=== PATIENT | female | born 1990 | race Caucasian/White ===

== ENCOUNTER 2016-07-08 22:40 | Emergency (ER) | payer OTHER ==
[~2016-07-08] VITALS: Ht 160 cm; Wt 63.1 kg
[~2016-07-08 22:40] MED LIST: 1-DAY4.6 GM VG; ADDERALL10 MG PO; ADDERALL5 MG PO; AMOXICILLI400 MG/5 M PO; AMOXICILLIN250 MG PO; AMOXICILLIN500 M1 PO; AMOXICILLIN875 MG PO; ANTIVERT25 MG PO; ANUSOL-HC21 GM PR; ATARAX,VISTARIL50 MG PO; AURALGAN14.8 ML RIGHT EAR; BACTRIM,SEPT1 TABLET PO; BACTRIM,SEPTRA S1 ML PO; BIOTIN1000 MICRO PO; CARAFATE100 MG/ML PO; CENTANY30 GM TP; CIPRO500 MG PO; CITRATE OF MAG296 ML PO; CLARITIN-D 21 TABLET PO; CLONAZEPAM0.5 MG PO; CLOTRIMAZOLE-745 GM VG; CLOTRIMAZOLE100 MG VG; COLACE100 MG PO; CYANOCOBAL1000 MCG/2 IM; DIFLUCAN150 MG PO; DOXYCYCLINE HY100 MG PO; FLAGYL500 MG PO; FLEXERIL10 MG PO; FLINTSTONES1 EACH PO; FLONASE16 G1 BOTH NARES; HYCODAN SYRUP480 ML PO; IBUPROFEN600 MG PO; IMITREX25 MG PO; K-DUR20 MEQ PO; KEFLEX500 MG PO; KLONOPIN0.5 M1 PO; KLONOPIN1 MG PO; MACROBID100 MG PO; MEDROL DOSEPAK4 MG PO; METROGEL-VAGINA70 GM VG; METRONIDAZOLE45 GM TP; MIRALAX17 GM PO; MONISTAT 11 EACH VG; MORGIDOX100 MG PO; MUCINEX D ER T1 EACH PO; NAPROSYN500 MG PO; NO HOME MEDS; NORCO 5/3251 TABLET PO; OXYCODONE HCL5 MG PO; PEPCID20 MG PO; PERCOCET 5/31 TABLET PO; PNV FOLIC ACID1 EACH PO; PREDNISONE20 MG PO; PRENATAL TABLE1 EAC3 PO; PROMETHAZINE12.5 M1 PO; PROVENTIL2.5 MG/3 M IH; RANITIDINE HCL150 MG PO; REGLAN10 MG PO; SERTRALINE HCL25 MG PO; TESSALON PERLE100 MG PO; TESSALON200 MG PO; TOPIRAMATE25 MG PO; VICODIN 5-3001 EACH PO; VIT B SHOT; VIT D; VITAMIN D-32000 UNI2 PO; ZANTAC150 MG PO; ZANTAC300 MG PO; ZOFRAN ODT4 MG PO; ZOFRAN4 MG PO; [UNRECOGNIZED DRUG - REMARK]
[2016-07-08 22:42] VITALS: BP 135/90
== END 2016-07-08 23:35 | disposition left against medical advice (07) ==
LOC: EME 22:40
DX: R06.02 Shortness of breath (principal); Z53.21 Procedure and treatment not carried out due to patient leaving prior to being seen by health care provider; R42 Dizziness and giddiness; R10.9 Unspecified abdominal pain; Z72.0 Tobacco use; F41.9 Anxiety disorder, unspecified